=== PATIENT | male | born 1945 | race Caucasian/White ===

== ENCOUNTER → 2019-01-20 | Outpatient (CLI) | payer MEDICARE ==
--- NOTE | 2019-01-21 11:28 | US ---
EXAMINATION TYPE: US duplex aorta DATE OF EXAM: 01/20/2019 COMPARISON: NONE CLINICAL HISTORY: Z13.6 AAA. AAA Screening EXAM MEASUREMENTS: Abdominal Aorta: Proximal: 2.2 x 2.0 cm Mid: 2.0 x 1.8 cm Distal: 1.9 x 1.7 cm Bifurcation: SELINA: 1.1 x 1.2 cm BRISSA: 1.0 x 0.9 cm Atherosclerosis, no evidence of AAA IMPRESSION: No sonographic evidence of abdominal aortic aneurysm in the visualized portions of the ab dominal aorta.
== END | disposition home or self-care (01) ==
LOC: RADUSWWP 09:33
PROVIDERS: ATTEND Family Medicine
DX: Z13.6 Encounter for screening for cardiovascular disorders (principal)
CPT/HCPCS: 93979

== ENCOUNTER → 2020-10-13 | Outpatient (CLI) | payer MEDICARE ==
--- NOTE | 2020-10-13 12:18 | US ---
EXAMINATION TYPE: US venous doppler duplex LE RT DATE OF EXAM: 10/13/2020 12:01 PM COMPARISON: NONE CLINICAL HISTORY: R79 + d dimer R22.41 Swelling Right Lower. edema SIDE PERFORMED: Right TECHNIQUE: The lower extremity deep venous system is examined utilizing real time linear array sonog quirino with graded compression, doppler sonography and color-flow sonography. VESSELS IMAGED: Common Femoral Vein Deep Femoral Vein Greater Saphenous Vein * Femoral Vein Popliteal Vein Small Saphenous Vein * Proximal Calf Veins (* superficial vessels) Popliteal Leg: Negative for DVT Bakers cyst seen 5.0 x 1.9 x 3.7 cm IMPRESSION: No sonographic evidence for deep vein thrombosis of the right lower extremity. Popliteal fossa cyst i s present.
== END | disposition home or self-care (01) ==
LOC: RADUSWWP 11:27
PROVIDERS: ATTEND Family Medicine
DX: R22.41 Localized swelling, mass and lump, right lower limb (principal); R79.89 Other specified abnormal findings of blood chemistry

== ENCOUNTER → 2021-04-09 | Outpatient (CLI) | payer MEDICARE ==
[~2021-04-09] MED LIST: BAMLANIVIMAB (EUA) 700 MG, ETESEVIMAB (EUA) 1,400 MG in SODIUM CHLORIDE 0.9% 50 ML IVPB ONE; SODIUM CHLORIDE 0.9% 50 ML IVPB ONE; SODIUM CHLORIDE 0.9% 500 ML 500 ML in EMPTY BAG 1 BAG IV PRN
[2021-04-09 10:49] VITALS: RESP 16
[2021-04-09 10:50] VITALS: PULSE 78
[2021-04-09 11:05] VITALS: BP 127/79; TEMP 96.9
== END ==
LOC: PROCWHC3 09:50
PROVIDERS: ATTEND Physician Assistant
DX: U07.1 COVID-19 (principal); E66.9 Obesity, unspecified; E11.9 Type 2 diabetes mellitus without complications; F17.200 Nicotine dependence, unspecified, uncomplicated; Z68.42 Body mass index [BMI] 45.0-49.9, adult
CPT/HCPCS: 96360; J3490; M0245

== ENCOUNTER 2022-04-16 11:43 | Emergency (ER) | payer MEDICARE ==
[2022-04-16 12:21] VITALS: BP 120/66; PULSE 78; RESP 20; TEMP 97.4
--- NOTE | 2022-04-16 13:34 | ED ---
General Adult HPI - General Chief complaint: Extremity Problem,Nontraumatic Stated complaint: Rash on R. Foot, R/O Blood Clot Time Seen by Provider: 04/16/22 12:23 Source: patient, family, RN notes reviewed, old records reviewed Mode of arrival: ambulatory Limitations: language barrier - History of Present Illness Initial comments: This is a 76-year-old male who presents to the emergency department with a rash on his right leg there is multiple vesicles and erythema around the vesicles. Patient is very demented and does not state that there is any pain. Patient's leg is also swollen. Daughter states this is been ongoing since April 13. There is been no complaints of any fever but some difficulty breathing or pain patient here specifically for the swollen leg in the rash on the leg. - Related Data Home Medications Medication Instructions Recorded Confirmed Aspirin EC [Ecotrin Low Dose] 81 mg PO DAILY 04/16/22 04/16/22 Atorvastatin [Lipitor] 20 mg PO DAILY 04/16/22 04/16/22 Benazepril HCl 20 mg PO DAILY 04/16/22 04/16/22 Cyanocobalamin (Vitamin B-12) 1,000 mcg PO DAILY 04/16/22 04/16/22 [Vitamin B-12] Dapagliflozin Propanediol [Farxiga] 10 mg PO DAILY 04/16/22 04/16/22 Donepezil [Aricept] 5 mg PO DAILY 04/16/22 04/16/22 Furosemide [Lasix] 20 mg PO DAILY 04/16/22 04/16/22 Glimepiride [Amaryl] 1 mg PO BID 04/16/22 04/16/22 Latanoprost/Pf [Latanoprost 0.005% 1 drop BOTH EYES HS 04/16/22 04/16/22 Eye Drop] Memantine [Namenda] 10 mg PO BID 04/16/22 04/16/22 Timolol 0.25% Ophth Soln [Timoptic 1 drop BOTH EYES DAILY 04/16/22 04/16/22 0.25% Ophth Soln] metFORMIN HCL [Glucophage] 500 mg PO BID 04/16/22 04/16/22 Previous Rx's Medication Instructions Recorded valACYclovir HCL [Valacyclovir] 1,000 mg PO TID #30 tab 04/16/22 Allergies Allergy/AdvReac Type Severity Reaction Status Date / Time No Known Allergies Allergy Verified 04/16/22 14:09 Review of Systems ROS Statement: Those systems with pertinent positive or pertinent negative responses have been documented in the HPI. ROS Other: All systems not noted in ROS Statement are negative. Past Medical History Past Medical History: Dementia, Hyperlipidemia, Hypertension Additional Past Medical History / Comment(s): gout History of Any Multi-Drug Resistant Organisms: None Reported Past Surgical History: No Surgical Hx Reported Past Psychological History: No Psychological Hx Reported Smoking Status: Former smoker Past Alcohol Use History: None Reported Past Drug Use History: None Reported General Exam - General Exam Comments Initial Comments: GENERAL: Patient is well-developed and well-nourished. Patient is nontoxic and well- hydrated and is in no acute distress. ENT: Neck is soft and supple. No significant lymphadenopathy is noted. Oropharynx is clear. Moist mucous membranes. EYES: The sclera were anicteric and conjunctiva were pink and moist. Extraocular movements were intact and pupils were equal round and reactive to light. Eyelids were unremarkable. PULMONARY: Unlabored respirations. Good breath sounds bilaterally. CARDIOVASCULAR: There is a regular rate and rhythm without any murmurs gallops or rubs. ABDOMEN: Soft and nontender with normal bowel sounds. SKIN: There is vesicles in groups on the right leg on the anterior medial aspect there are no vesicles on the other leg or anywhere else on the body. NEUROLOGIC: Patient is alert and oriented 1. Cranial nerves II through XII are grossly intact. Motor intact. Normal speech, volume and content. Symmetrical smile. MUSCULOSKELETAL: Normal extremities with adequate strength and full range of motion. Right leg is swollen. LYMPHATICS: No significant lymphadenopathy is noted PSYCHIATRIC: Normal psychiatric evaluation. Limitations: language barrier Course Vital Signs 04/16/22 12:16 Temperature 97.4 F L Pulse Rate 78 Respiratory 20 Rate Blood Pressure 120/66 O2 Sat by Pulse 96 Oximetry Medical Decision Making - Medical Decision Making Was pt. sent in by a medical professional or institution? @ -No Did you speak to anyone other than the patient for history? @ -Daughter Did you review nursing and triage notes? @ -Agree with nursing notes Were old charts reviewed? @ -No old charts were reviewed Differential Diagnosis? @ -DVT, infection, zoster EKG interpreted by me (3pts min.)? @ -None X-rays interpreted by me (1pt min.)? @ -None CT interpreted by me (1pt min.)? @ -None U/S interpreted by me (1pt. min.)? @ -No DVT was detected there is a Weber cyst on the right toe. What testing was considered but not performed? (CT, X-rays, U/S, labs)? Why? @ -No What meds were considered but not given? Why? @ -No Did you discuss the management of the patient with other professionals? @ -No Did you reconcile home meds? @ -No Was smoking cessation discussed for >3mins.? @ -No Was critical care preformed (if so, how long)? @ -No Were there social determinants of health that impacted care today? How? (Homelessness, low income, unemployed, alcoholism, drug addiction, transportation, low edu. Level, literacy, decrease access to med. care, penitentiary, rehab)? @ -No Was there de-escalation of care discussed even if they declined? (Discuss DNR or withdrawal of care, Hospice)? @ -No What co-morbidities impacted this encounter? (DM, HTN, Smoking, COPD, CAD, Cancer, CVA, Hep., AIDS, mental health diagnosis, sleep apnea, morbid obesity)? @ -No Was patient admitted / discharged? @ -Discharged. Patient be sent home on valacyclovir patient has no signs of bacterial infection at this time. If there is any signs of redness fever or streaking erythema patient should return to emergency department immediately Undiagnosed new problem with uncertain prognosis? @ -No Drug Therapy requiring intensive monitoring for toxicity (Heparin, Nitro, Insulin, Cardizem)? @ -No Were any procedures done? @ -No Diagnosis/symptom? @ -Herpes zoster Acute, or Chronic, or Acute on Chronic? @ -Acute Uncomplicated (without systemic symptoms) or Complicated (systemic symptoms)? @ -Uncomplicated Side effects of treatment? @ -No Exacerbation, Progression, or Severe Exacerbation] @ -No Poses a threat to life or bodily function? @ -No Diagnosis/symptom? @ -Weber cyst Acute, or Chronic, or Acute on Chronic? @ -Chronic Uncomplicated (without systemic symptoms) or Complicated (systemic symptoms)? @ -Uncomplicated Side effects of treatment? @ -No Exacerbation, Progression, or Severe Exacerbation? @ -No Poses a threat to life or bodily function? @ -No Disposition Clinical Impression: Herpes zoster Disposition: HOME SELF-CARE Condition: Good Instructions (If sedation given, give patient instructions): Shingles (ED) Prescriptions: valACYclovir HCL [Valacyclovir] 1,000 mg PO TID #30 tab Is patient prescribed a controlled substance at d/c from ED?: No Referrals: Hira Cope MD [Primary Care Provider] - 1-2 days Time of Disposition: 15:07
--- NOTE | 2022-04-16 14:30 | US ---
EXAMINATION TYPE: US venous doppler duplex LE RT DATE OF EXAM: 04/16/2022 2:04 PM COMPARISON: 10/13/2020 CLINICAL HISTORY: 76-year-old male with swollen right leg. Limited history. SIDE PERFORMED: Right TECHNIQUE: The lower extremity deep venous system is examined utilizing real time linear array sonog quirino with graded compression, doppler sonography and color-flow sonography. FINDINGS: VESSELS IMAGED: Common Femoral Vein Deep Femoral Vein Greater Saphenous Vein * Femoral Vein Popliteal Vein Small Saphenous Vein * Proximal Calf Veins (* superficial vessels) Right Leg: No evidence of DVT in veins imaged. Anamika complex Weber's cyst within the right popliteal fossa measurin.1 x 4.8 x 1.6 cm. IMPRESSION: 1. No sonographic evidence for DVT within the right lower extremity imaged from the groin to the uppe r calf. 2. Moderate-sized Weber's cyst measuring 6.1 x 4.8 cm.
== END 2022-04-16 15:39 | disposition home or self-care (01) ==
LOC: EC 11:43
DX: B02.9 Zoster without complications (principal); I10 Essential (primary) hypertension; E78.5 Hyperlipidemia, unspecified; Z79.82 Long term (current) use of aspirin; Z79.84 Long term (current) use of oral hypoglycemic drugs; Z79.899 Other long term (current) drug therapy; Z87.891 Personal history of nicotine dependence
CPT/HCPCS: 99283

== ENCOUNTER 2024-01-04 13:47 | Inpatient (IN) | payer MEDICARE ==
[2024-01-04] MEDS: SODIUM CHLORIDE 0.9% 500 ML 500 ML IV ONE (14:53)
[2024-01-04] MEDS: SODIUM CHLORIDE 0.9% 1,000 ML IV ONE (14:54)
[2024-01-04] MEDS: KETOROLAC 15 MG/ML 1 ML VIAL IVP STA (14:55)
[2024-01-04] MEDS: ACETAMINOPHEN IV (For NPO) 1,000 MG in EMPTY BAG 1 BAG IVPB STA (15:02)
[2024-01-04] MEDS: SODIUM CHLORIDE 0.9% 1,000 ML IV STA (15:03)
--- NOTE | 2024-01-04 15:11 | ED ---
Altered Mental Status HPI - General Chief Complaint: Altered Mental Status Stated Complaint: Weakness, Fever Time Seen by Provider: 01/04/24 14:05 Source: family, EMS, RN notes reviewed Mode of arrival: EMS Limitations: altered mental status - History of Present Illness Initial Comments: This is an 78-year-old male who presents to the emergency department for weakness and altered mental status. Family states that over the last week he has been sleeping more than normal and is less active. This morning he was very difficult to arouse and they noted him to be febrile. Per EMS they had to sternal rub him to wake him up. They state that his oxygen saturation was also around 89-90%. He has been coughing a bit as well. Patient's daughter and his w benitez have had URI symptoms. He has a history of dementia, but is usually able to make some sense when he speaks and talk a little bit, however he is not making any sense when he is trying to speak currently. Additionally, he is usually able to get up walk around a little bit, but has not been able to get up on his own over the last day. MD Complaint: altered mental status, confusion - Related Data Home Medications Medication Instructions Recorded Confirmed Aspirin EC [Ecotrin Low Dose] 81 mg PO DAILY 04/16/22 01/04/24 Atorvastatin [Lipitor] 20 mg PO DAILY 04/16/22 01/04/24 Benazepril HCl 20 mg PO DAILY 04/16/22 01/04/24 Cyanocobalamin (Vitamin B-12) 1,000 mcg PO DAILY 04/16/22 01/04/24 [Vitamin B-12] Donepezil [Aricept] 5 mg PO DAILY 04/16/22 01/04/24 Furosemide [Lasix] 20 mg PO DAILY 04/16/22 01/04/24 Latanoprost/Pf [Latanoprost 0.005% 1 drop BOTH EYES HS 04/16/22 01/04/24 Eye Drop] Memantine [Namenda] 10 mg PO BID 04/16/22 01/04/24 metFORMIN HCL [Glucophage] 500 mg PO BID 04/16/22 01/04/24 Dapagliflozin Propanediol [Farxiga] 5 mg PO DAILY 01/04/24 01/04/24 Timolol 0.5% Ophth Soln [Timoptic 1 drop BOTH EYES DAILY 01/04/24 01/04/24 0.5% Ophth Soln] Allergies Allergy/AdvReac Type Severity Reaction Status Date / Time No Known Allergies Allergy Verified 01/04/24 15:55 Review of Systems ROS Statement: Those systems with pertinent positive or pertinent negative responses have been documented in the HPI. ROS Other: All systems not noted in ROS Statement are negative. Past Medical History Past Medical History: Cancer, Dementia, Diabetes Mellitus, Hyperlipidemia, Hypertension Additional Past Medical History / Comment(s): gout, prostate cancer History of Any Multi-Drug Resistant Organisms: None Reported Past Surgical History: No Surgical Hx Reported Past Psychological History: No Psychological Hx Reported Smoking Status: Former smoker Past Alcohol Use History: None Reported Past Drug Use History: None Reported General Exam Limitations: altered mental status General appearance: alert Head exam: Present: atraumatic, normocephalic, normal inspection Respiratory exam: Present: normal lung sounds bilaterally. Absent: respiratory distress, wheezes, rales, rhonchi, stridor Cardiovascular Exam: Present: regular rate, normal rhythm, normal heart sounds. Absent: systolic murmur, diastolic murmur, rubs, gallop, clicks GI/Abdominal exam: Present: soft, normal bowel sounds. Absent: distended Neurological exam: Present: alert Skin exam: Present: warm, dry, intact Course Vital Signs 01/04/24 01/04/24 01/04/24 13:50 15:03 16:19 Temperature 101.3 F H 99.5 F Pulse Rate 98 89 89 Respiratory 20 22 20 Rate Blood Pressure 105/73 112/65 98/61 O2 Sat by Pulse 91 L 97 96 Oximetry 01/04/24 17:51 Temperature Pulse Rate 77 Respiratory 18 Rate Blood Pressure 96/57 O2 Sat by Pulse 95 Oximetry Medical Decision Making - Medical Decision Making This is an 78 year old male who presents to the emergency department for weakness and altered mental status. Was pt. sent in by a medical professional or institution? @ -No Did you speak to anyone other than the patient for history? @ -His family provided all of the history Did you review nursing and triage notes? @ -Yes, and I agree, it is accurate with regards to the patient's symptoms. Were old charts reviewed? @ -No Differential Diagnosis? @ -Differential Altered Mental Status: Hypoglycemia, DKA, hypercapnia, ETOH, overdose, CO poisoning, trauma, myxedema coma, HTN encephalopathy, infection, encephalitis, psychosis, intercranial hemorrhage, hepatic encephalopathy, meningitis, CVA, this is not meant to be an all-inclusive list EKG interpreted by me (3pts min.)? @ -EKG interpreted by me demonstrating the following: Sinus rhythm. Ventricular rate 95 bpm, MS interval 148 ms, QRS duration 94 ms, QTc 389 ms. X-rays interpreted by me (1pt min.)? @ -Chest x-ray obtained. My interpretation identifies diffuse interstitial opacities. CT interpreted by me (1pt min.)? @ -Not obtained U/S interpreted by me (1pt. min.)? @ -Not obtained What testing was considered but not performed? (CT, X-rays, U/S, labs)? Why? @ -None What meds were considered but not given? Why? @ -None Did you discuss the management of the patient with other professionals? @ -Yes, Dr. Schwartz, who accepts the patient for admission Did you reconcile home meds? @ -Yes Was smoking cessation discussed for >3mins.? @ -No Was critical care preformed (if so, how long)? @ -No Were there social determinants of health that impacted care today? How? (Homelessness, low income, unemployed, alcoholism, drug addiction, transportation, low edu. Level, literacy, decrease access to med. care, prison, rehab)? @ -No Was there de-escalation of care discussed even if they declined? (Discuss DNR or withdrawal of care, Hospice)? @ -No What co-morbidities impacted this encounter? (DM, HTN, Smoking, COPD, CAD, Cancer, CVA, Hep., AIDS, mental health diagnosis, sleep apnea, morbid obesity)? @ -Dementia, DM, HLD, HTN Was patient admitted / discharged? @ -Admitted. Lab work relatively unremarkable. Patient positive for COVID-19. Chest x-ray reveals diffuse interstitial opacities concerning for CHF with pulmonary vascular congestion. BNP 766. Patient's family states that he does not have a history of CHF. He is on Lasix 20 mg daily. Urinalysis negative for signs of infection. Patient currently requiring supplemental oxygen at approximately 2 L. We attempted to decrease his oxygen and he dropped to 87% on room air. This likely would have continued to drop lower, however we turned the oxygen back up to prevent the patient from becoming distressed. He is unable to provide much of any history himself at this time. Pressures were also consistently soft in the high 90s systolically. Given patient's low oxygen saturation with level of increasing weakness, patient admitted to medicine for COVID hypoxia. He was started on Decadron daily due to supplemental oxygen requirement. Case discussed with ED attending Dr. Yo. Undiagnosed new problem with uncertain prognosis? @ -None Drug Therapy requiring intensive monitoring for toxicity (Heparin, Nitro, Insulin, Cardizem)? @ -None Were any procedures done? @ -None Diagnosis/symptom? @ -COVID hypoxia Acute, or Chronic, or Acute on Chronic? @ -Acute Uncomplicated (without systemic symptoms) or Complicated (systemic symptoms)? @ -Complicated Side effects of treatment? @ -None Exacerbation, Progression, or Severe Exacerbation] @ -Not applicable Poses a threat to life or bodily function? @ -Yes, can lead to respiratory arrest and - Lab Data Result diagrams: 01/04/24 14:38 01/04/24 14:38 Lab Results 01/04/24 01/04/24 01/04/24 Range/Units 14:38 14:38 14:38 WBC 6.9 (3.8-10.6) k/uL RBC 5.46 (4.30-5.90) m/uL Hgb 12.8 L (13.0-17.5) gm/dL Hct 40.0 (39.0-53.0) % MCV 73.3 L (80.0-100.0) fL MCH 23.5 L (25.0-35.0) pg MCHC 32.1 (31.0-37.0) g/dL RDW 15.5 (11.5-15.5) % Plt Count 123 L (150-450) k/uL MPV 11.0 Neutrophils % 72 % Lymphocytes % 15 % Monocytes % 10 % Eosinophils % 1 % Basophils % 0 % Neutrophils # 5.0 (1.3-7.7) k/uL Lymphocytes # 1.0 (1.0-4.8) k/uL Monocytes # 0.7 (0-1.0) k/uL Eosinophils # 0.1 (0-0.7) k/uL Basophils # 0.0 (0-0.2) k/uL Hypochromasia Slight Microcytosis Slight PT 11.3 (10.0-12.5) sec INR 1.0 (<1.2) APTT 20.9 L (22.0-30.0) sec Sodium 139 (137-145) mmol/L Potassium 4.3 (3.5-5.1) mmol/L Chloride 101 (98-107) mmol/L Carbon Dioxide 27 (22-30) mmol/L Anion Gap 11 mmol/L BUN 12 (9-20) mg/dL Creatinine 0.75 (0.66-1.25) mg/dL Est GFR (CKD-EPI)AfAm >90 (>60 ml/min/1.73 sqM) Est GFR (CKD-EPI)NonAf 87 (>60 ml/min/1.73 sqM) Glucose 131 H (74-99) mg/dL Plasma Lactic Acid Bernardino (0.7-2.0) mmol/L Calcium 9.2 (8.4-10.2) mg/dL Total Bilirubin 1.0 (0.2-1.3) mg/dL AST 19 (17-59) U/L ALT 15 (4-49) U/L Alkaline Phosphatase 62 (38-126) U/L Troponin I (0.000-0.034) ng/mL NT-Pro-B Natriuret Pep pg/mL Total Protein 6.9 (6.3-8.2) g/dL Albumin 4.1 (3.5-5.0) g/dL Urine Color Urine Appearance (Clear) Urine pH (5.0-8.0) Ur Specific [place] (1.001-1.035) Urine Protein (Negative) Urine Glucose (UA) (Negative) Urine Ketones (Negative) Urine Blood (Negative) Urine Nitrite (Negative) Urine Bilirubin (Negative) Urine Urobilinogen (<2.0) mg/dL Ur Leukocyte Esterase (Negative) Urine RBC (0-5) /hpf Urine WBC (0-5) /hpf Ur Squamous Epith Cells (0-4) /hpf Urine Mucus (None) /hpf Influenza Type A (PCR) (Not Detectd) Influenza Type B (PCR) (Not Detectd) RSV (PCR) (Not Detectd) SARS-CoV-2 (PCR) (Not Detectd) 01/04/24 01/04/24 01/04/24 Range/Units 14:38 14:38 14:38 WBC (3.8-10.6) k/uL RBC (4.30-5.90) m/uL Hgb (13.0-17.5) gm/dL Hct (39.0-53.0) % MCV (80.0-100.0) fL MCH (25.0-35.0) pg MCHC (31.0-37.0) g/dL RDW (11.5-15.5) % Plt Count (150-450) k/uL MPV Neutrophils % % Lymphocytes % % Monocytes % % Eosinophils % % Basophils % % Neutrophils # (1.3-7.7) k/uL Lymphocytes # (1.0-4.8) k/uL Monocytes # (0-1.0) k/uL Eosinophils # (0-0.7) k/uL Basophils # (0-0.2) k/uL Hypochromasia Microcytosis PT (10.0-12.5) sec INR (<1.2) APTT (22.0-30.0) sec Sodium (137-145) mmol/L Potassium (3.5-5.1) mmol/L Chloride (98-107) mmol/L Carbon Dioxide (22-30) mmol/L Anion Gap mmol/L BUN (9-20) mg/dL Creatinine (0.66-1.25) mg/dL Est GFR (CKD-EPI)AfAm (>60 ml/min/1.73 sqM) Est GFR (CKD-EPI)NonAf (>60 ml/min/1.73 sqM) Glucose (74-99) mg/dL Plasma Lactic Acid Bernardino 1.4 (0.7-2.0) mmol/L Calcium (8.4-10.2) mg/dL Total Bilirubin (0.2-1.3) mg/dL AST (17-59) U/L ALT (4-49) U/L Alkaline Phosphatase (38-126) U/L Troponin I (0.000-0.034) ng/mL NT-Pro-B Natriuret Pep pg/mL Total Protein (6.3-8.2) g/dL Albumin (3.5-5.0) g/dL Urine Color Yellow Urine Appearance Clear (Clear) Urine pH 6.0 (5.0-8.0) Ur Specific [place] 1.029 (1.001-1.035) Urine Protein Trace H (Negative) Urine Glucose (UA) 4+ H (Negative) Urine Ketones Trace H (Negative) Urine Blood Trace H (Negative) Urine Nitrite Negative (Negative) Urine Bilirubin Negative (Negative) Urine Urobilinogen <2.0 (<2.0) mg/dL Ur Leukocyte Esterase Negative (Negative) Urine RBC 6 H (0-5) /hpf Urine WBC 1 (0-5) /hpf Ur Squamous Epith Cells <1 (0-4) /hpf Urine Mucus Rare H (None) /hpf Influenza Type A (PCR) Not Detected (Not Detectd) Influenza Type B (PCR) Not Detected (Not Detectd) RSV (PCR) Not Detected (Not Detectd) SARS-CoV-2 (PCR) Detected A (Not Detectd) 01/04/24 01/04/24 Range/Units 14:38 14:38 WBC (3.8-10.6) k/uL RBC (4.30-5.90) m/uL Hgb (13.0-17.5) gm/dL Hct (39.0-53.0) % MCV (80.0-100.0) fL MCH (25.0-35.0) pg MCHC (31.0-37.0) g/dL RDW (11.5-15.5) % Plt Count (150-450) k/uL MPV Neutrophils % % Lymphocytes % % Monocytes % % Eosinophils % % Basophils % % Neutrophils # (1.3-7.7) k/uL Lymphocytes # (1.0-4.8) k/uL Monocytes # (0-1.0) k/uL Eosinophils # (0-0.7) k/uL Basophils # (0-0.2) k/uL Hypochromasia Microcytosis PT (10.0-12.5) sec INR (<1.2) APTT (22.0-30.0) sec Sodium (137-145) mmol/L Potassium (3.5-5.1) mmol/L Chloride (98-107) mmol/L Carbon Dioxide (22-30) mmol/L Anion Gap mmol/L BUN (9-20) mg/dL Creatinine (0.66-1.25) mg/dL Est GFR (CKD-EPI)AfAm (>60 ml/min/1.73 sqM) Est GFR (CKD-EPI)NonAf (>60 ml/min/1.73 sqM) Glucose (74-99) mg/dL Plasma Lactic Acid [place] (0.7-2.0) mmol/L Calcium (8.4-10.2) mg/dL Total Bilirubin (0.2-1.3) mg/dL AST (17-59) U/L ALT (4-49) U/L Alkaline Phosphatase (38-126) U/L Troponin I <0.012 (0.000-0.034) ng/mL NT-Pro-B Natriuret Pep 766 pg/mL Total Protein (6.3-8.2) g/dL Albumin (3.5-5.0) g/dL Urine Color Urine Appearance (Clear) Urine pH (5.0-8.0) Ur Specific [place] (1.001-1.035) Urine Protein (Negative) Urine Glucose (UA) (Negative) Urine Ketones (Negative) Urine Blood (Negative) Urine Nitrite (Negative) Urine Bilirubin (Negative) Urine Urobilinogen (<2.0) mg/dL Ur Leukocyte Esterase (Negative) Urine RBC (0-5) /hpf Urine WBC (0-5) /hpf Ur Squamous Epith Cells (0-4) /hpf Urine Mucus (None) /hpf Influenza Type A (PCR) (Not Detectd) Influenza Type B (PCR) (Not Detectd) RSV (PCR) (Not Detectd) SARS-CoV-2 (PCR) (Not Detectd) - Radiology Data Radiology results: report reviewed, image reviewed Disposition Clinical Impression: Acute hypoxemic respiratory failure due to COVID-19 Disposition: ADMITTED IP TO THIS HOSP
[2024-01-04 15:18] LABS: ALT 15 U/L (4-49); AST 19 U/L (17-59); African American GFR (CKD) >90 (>60 ml/min/1.73 sqM); Albumin 4.1 g/dL (3.5-5.0); Alkaline Phosphatase 62 U/L (38-126); Anion Gap 11 mmol/L; Blood Urea Nitrogen 12 mg/dL (9-20); Calcium 9.2 mg/dL (8.4-10.2); Carbon Dioxide 27 mmol/L (22-30); Chloride 101 mmol/L (98-107); Glucose 131 mg/dL (74-99); Non-African American GFR(CKD) 87 (>60 ml/min/1.73 sqM); Potassium 4.3 mmol/L (3.5-5.1); Sodium 139 mmol/L (137-145); Total Protein 6.9 g/dL (6.3-8.2)
[2024-01-04 15:19] LABS: Basophils % (A) 0 %; Eosinophils # (A) 0.1 k/uL (0-0.7); Eosinophils % (A) 1 %; HGB 12.8 gm/dL (13.0-17.5); Hypochromasia Slight; Lymphocytes % (A) 15 %; MCH 23.5 pg (25.0-35.0); MCHC 32.1 g/dL (31.0-37.0); MCV 73.3 fL (80.0-100.0); Microcytosis Slight; Monocytes # (A) 0.7 k/uL (0-1.0); Monocytes % (A) 10 %; Neutrophils % (A) 72 %; Platelet Count 123 k/uL (150-450); RBC 5.46 m/uL (4.30-5.90); RDW 15.5 % (11.5-15.5); WBC 6.9 k/uL (3.8-10.6)
--- NOTE | 2024-01-04 15:23 | XR ---
EXAMINATION TYPE: XR chest 2V DATE OF EXAM: 01/04/2024 COMPARISON: None HISTORY: 78-year-old male confusion, altered mental status TECHNIQUE: AP and lateral views FINDINGS: Heart mildly enlarged. Diffuse interstitial opacities. No [place] consolidation or pleural effusion. IMPRESSION: CHF with pulmonary vascular congestion. [facility] Josesito Zambrano, , 01/04/2024 3:21 PM
[2024-01-04 15:25] LABS: Partial Thromboplastin Time 20.9 sec (22.0-30.0); Prothrombin Time 11.3 sec (10.0-12.5)
[2024-01-04 17:19] LABS: Appearance,Urine Clear (Clear); Bilirubin,Urine Negative (Negative); Blood,Urine Trace (Negative); Color,Urine Yellow; Glucose,Urine (UA) 4+ (Negative); Ketones,Urine Trace (Negative); Leukocyte Esterase,Urine Negative (Negative); Mucus,Urine Rare /hpf; Nitrite,Urine Negative (Negative); Protein,Urine Trace (Negative); RBC,Urine 6 /hpf (0-5); Specific Gravity,Urine 1.029 (1.001-1.035); Squamous Epithelial Cell,Urine <1 /hpf (0-4); Urobilinogen,Urine <2.0 mg/dL (<2.0); WBC,Urine 1 /hpf (0-5)
[2024-01-04] MEDS ORDERED: ALBUTEROL HFA INHALER INHALATION PRN (17:37)
[2024-01-04] MEDS ORDERED: MORPHINE SULFATE 4 MG/ML SYRINGE IV PRN (17:40)
[2024-01-04] MEDS ORDERED: KETOROLAC 15 MG/ML 1 ML VIAL IVP PRN (17:40)
[2024-01-04] MEDS ORDERED: ONDANSETRON 4 MG/2 ML VIAL IVP PRN (17:40)
[2024-01-04] MEDS ORDERED: NALOXONE 0.4 MG/ML 1 ML VIAL IV PRN (17:40)
[2024-01-04] MEDS: ALBUTEROL HFA INHALER INHALATION STA (18:03)
[2024-01-04] MEDS: ALBUTEROL HFA INHALER INHALATION SCH (19:47)
[2024-01-04] MEDS: DEXAMETHASONE SOD PHOSPHATE 10 MG/ML 1 ML VIAL IV SCH (19:50)
[2024-01-04] MEDS: SODIUM CHLORIDE 0.9% 1,000 ML IV SCH (19:53)
[2024-01-04] MEDS: ACETAMINOPHEN IV (For NPO) 1,000 MG in EMPTY BAG 1 BAG IVPB PRN (20:41)
[2024-01-04] MEDS: MEMANTINE 10 MG TAB PO SCH (22:49)
[2024-01-04] MEDS: LATANOPROST 0.005% OPHTH DROPS 2.5 ML BTL BOTH EYES SCH (22:50)
[2024-01-05] MEDS ORDERED: DEXTROSE 50% SYRINGE 50 ML IVP PRN ×2 (00:55)
--- NOTE | 2024-01-05 00:55 | P.HPIM ---
History of Present Illness H&P Date: 01/04/24 Chief Complaint: AMS 78 year old male with DM , hypertension , CHF patient brought in by EMS , after family noticed rapid decline in mental status over past couple days, patient unable to provide any meaningfull history at this time due to AMS. family reported two sick family members with URI symptoms , patient himself has been progressively getting weak and confused over the past week. this morning he was difficult to arouse and febrile. EMS found him hypoxic into 89-90% , patient is not on home oxygen . family reports some coughing , increase sleep and less active. at baseline he has dementia but still makes some sense and talks a little bit review of systems unable to obtain due to AMS on exam Constitutional: No acute distress, sleeping in bed , does not follow commands, moves his upper extremities spontaneously and purposefully Eyes: Anicteric sclerae, moist conjunctiva, Pupils equal round reactive to light ENMT: NC/AT Oropharynx clear, no erythema, or exudates Neck: Supple, no masses, or JVD No carotid bruits No thyromegaly Lungs: good breath sounds bilaterally , no wheezing , positive for inspiratory rales at left lung base Clear to percussion Normal respiratory effort, no accessory muscle use Cardiovascular: Heart regular in rate and rhythm, No murmurs, gallops, or rubs No peripheral edema Abdominal: Soft Nontender, no guarding, rebound or rigidity Abdomen moving with respiration Normoactive bowel sounds Extremities: No digital cyanosis No clubbing Pedal pulses intact and symmetrical Radial pulses intact and symmetrical No calf tenderness Psychiatric: sleepy , open eyes to verbal stimulation , mumbles incomprehensible words Neuro moves his upper extremities spontaneously and purposefully Past Medical History Past Medical History: Cancer, Dementia, Diabetes Mellitus, Hyperlipidemia, Hypertension Additional Past Medical History / Comment(s): gout, prostate cancer History of Any Multi-Drug Resistant Organisms: None Reported Past Surgical History: No Surgical Hx Reported Past Psychological History: No Psychological Hx Reported Smoking Status: Former smoker Past Alcohol Use History: None Reported Past Drug Use History: None Reported Medications and Allergies Home Medications Medication Instructions Recorded Confirmed Type Aspirin EC [Ecotrin Low Dose] 81 mg PO DAILY 04/16/22 01/04/24 History Atorvastatin [Lipitor] 20 mg PO DAILY 04/16/22 01/04/24 History Benazepril HCl 20 mg PO DAILY 04/16/22 01/04/24 History Cyanocobalamin (Vitamin B-12) 1,000 mcg PO DAILY 04/16/22 01/04/24 History [Vitamin B-12] Donepezil [Aricept] 5 mg PO DAILY 04/16/22 01/04/24 History Furosemide [Lasix] 20 mg PO DAILY 04/16/22 01/04/24 History Latanoprost/Pf [Latanoprost 0.005% 1 drop BOTH EYES HS 04/16/22 01/04/24 History Eye Drop] Memantine [Namenda] 10 mg PO BID 04/16/22 01/04/24 History metFORMIN HCL [Glucophage] 500 mg PO BID 04/16/22 01/04/24 History Dapagliflozin Propanediol [Farxiga] 5 mg PO DAILY 01/04/24 01/04/24 History Timolol 0.5% Ophth Soln [Timoptic 1 drop BOTH EYES DAILY 01/04/24 01/04/24 History 0.5% Ophth Soln] Allergies Allergy/AdvReac Type Severity Reaction Status Date / Time No Known Allergies Allergy Verified 01/04/24 15:55 Physical Exam Vitals: Vital Signs Temp Pulse Resp BP Pulse Ox 01/04/24 19:54 99.0 F 01/04/24 17:51 77 18 96/57 95 01/04/24 16:19 99.5 F 89 20 98/61 96 01/04/24 15:03 89 22 112/65 97 01/04/24 13:50 101.3 F H 98 20 105/73 91 L Intake and Output 01/04/24 01/04/24 01/04/24 06:59 14:59 22:59 Output Total 400 Balance -400 Output: Urine 400 Straight 400 Other: Weight 117.934 kg Results CBC & Chem 7: 01/04/24 14:38 01/04/24 14:38 Labs: Abnormal Lab Results - Last 24 Hours (Table) 01/04/24 01/04/24 01/04/24 Range/Units 14:38 14:38 14:38 Hgb 12.8 L (13.0-17.5) gm/dL MCV 73.3 L (80.0-100.0) fL MCH 23.5 L (25.0-35.0) pg Plt Count 123 L (150-450) k/uL APTT 20.9 L (22.0-30.0) sec Glucose 131 H (74-99) mg/dL Urine Protein (Negative) Urine Glucose (UA) (Negative) Urine Ketones (Negative) Urine Blood (Negative) Urine RBC (0-5) /hpf Urine Mucus (None) /hpf SARS-CoV-2 (PCR) (Not Detectd) 01/04/24 01/04/24 Range/Units 14:38 14:38 Hgb (13.0-17.5) gm/dL MCV (80.0-100.0) fL MCH (25.0-35.0) pg Plt Count (150-450) k/uL APTT (22.0-30.0) sec Glucose (74-99) mg/dL Urine Protein Trace H (Negative) Urine Glucose (UA) 4+ H (Negative) Urine Ketones Trace H (Negative) Urine Blood Trace H (Negative) Urine RBC 6 H (0-5) /hpf Urine Mucus Rare H (None) /hpf SARS-CoV-2 (PCR) Detected A (Not Detectd) Assessment and Plan Assessment: 78 year old male with DM , hypertension , CHF , brought to the hospital by EMS due to increase confusion and sleepiness, found to be hypoxic , I discussed the case with ED doc and I accepted the admission for acute hypoxic respiratory failure secondary to covid infection with anticipated length of stay > 2 midnights acute hypoxic respiratory failure covid pneumonia airborn and contact precautions supportive care supplemental oxygen as needed decadron 6 mg IVP daily X 10 days covid positive CXR mild pulmonary vascular congestion tylenol 1000 mg IVP q 6 hr prn for fever IVF hydration with normal saline 75 cc per hour WBC 6.9 unremarkable , Hgb 12.8 unremarkable DM insulin sliding scale continue farxiga Dementia continue mematine and donepezil hypertension continue lisinopril renal function unremarkable BUN 12 Cr 0.75 full code DVT PPX lovenox 40 mg sc daily
[2024-01-05] MEDS ORDERED: metFORMIN 500 MG TAB PO SCH (07:30)
[2024-01-05] MEDS: INSULIN ASPART (NovoLOG) 100 UNIT/ML VIAL SQ SCH (07:40)
[2024-01-05 07:41] LABS: Glucose,Whole Blood 132 mg/dL (70-110)
[2024-01-05] MEDS: ATORVASTATIN 20 MG TAB PO SCH (07:41)
[2024-01-05] MEDS: DAPAGLIFLOZIN PROPANEDIOL 5 MG TABLET PO SCH (07:41)
[2024-01-05] MEDS: ASPIRIN 81 MG PO SCH (07:41)
[2024-01-05] MEDS: ENOXAPARIN 40 MG/0.4 ML SYRINGE SQ SCH (07:41)
[2024-01-05] MEDS: CYANOCOBALAMIN 500 MCG TAB PO SCH (07:42)
[2024-01-05] MEDS: DONEPEZIL 5 MG TAB PO SCH (07:42)
[2024-01-05] MEDS: TIMOLOL 0.5% OPHTH DROPS 5 ML BTL BOTH EYES SCH (07:43)
[2024-01-05] MEDS: lisinopriL 20 MG TAB PO SCH (07:45)
[2024-01-05] MEDS: PANTOPRAZOLE 40 MG/10 ML VIAL IV SCH (07:45)
[2024-01-05] MEDS ORDERED: FUROSEMIDE 20 MG TAB PO SCH (09:00)
[2024-01-05 12:17] LABS: Glucose,Whole Blood 135 mg/dL (70-110)
--- NOTE | 2024-01-05 16:01 | P.PN ---
Subjective Progress Note Date: 01/05/24 Hospital Course: 78-year-old male with a history of dementia, hypertension, dyslipidemia, type 2 diabetes presenting with acute encephalopathy as well as hypoxic respiratory failure. In the ED, patient was hypoxic on room air requiring 2 L nasal cannula, rest of the vitals showed temperature 101.3 otherwise unremarkable. Laboratory workup showed hemoglobin of 12.8, MCV 73.3, platelet 123, elevated D- dimer 1.57, BNP 766, troponin negative, procalcitonin 0.1, COVID positive. Patient admitted for COVID-pneumonia and hypoxic respiratory failure. On IV Decadron. Subjective: Patient seen and examined at bedside. No acute events overnight. Patient unable to speak the language but claims that he is feeling better. Pertinent positives and negatives as discussed above, a complete review of systems was performed and all other systems are negative. Vitals Signs Reviewed. General: Nontoxic, no distress, appears at stated age, morbidly obese Derm: Warm, dry Head: Atraumatic, normocephalic, symmetric Eyes: EOMI, no lid lag, anicteric sclera Mouth: No lip lesion, mucus membranes moist Cardiovascular: S1S2 reg, no murmur Lungs: Bilateral rhonchi, no accessory muscle use Abdominal: Soft, nontender to palpation, no guarding, no appreciable organomegaly Ext: No gross muscle atrophy, no edema, no contractures Neuro: CN II-XI grossly intact, no focal neuro deficits Psych: Alert, oriented, appropriate affect Data Reviewed Today: Pertinent Labs: Glucose range between 1 31-1 35, procalcitonin 0.1, D-dimer 1.57 Imaging: no new imaging Assessment and Plan: Acute hypoxic respiratory failure Acute COVID-pneumonia -Supportive care -Wean oxygen -IV Decadron changed to oral Decadron 6 mg daily complete total course of 10 days. -No indications for antibiotics -Tylenol as needed for fever -Continue normal saline at 75 cc an hour DM -Insulin sliding scale, ACHS, monitor for hypoglycemia -Continue farxiga 5 mg daily Dementia -Continue mematine 10 twice daily and donepezil 5 daily hypertension -Continue lisinopril 20 daily Dyslipidemia -Continue atorvastatin 20 daily DVT ppx: Lovenox Code status: Full code Anticipated discharge place: Home Anticipated discharge time: Likely tomorrow Objective - Vital Signs Vital signs: Vital Signs Temp 98.9 F 01/05/24 07:58 Pulse 75 01/05/24 15:00 Resp 18 01/05/24 15:00 BP 145/60 01/05/24 15:00 Pulse Ox 95 01/05/24 15:00 FiO2 Intake & Output 01/04/24 01/05/24 01/05/24 18:59 06:59 18:59 Output Total 400 Balance -400 Weight 117.934 kg Output: Urine 400 Straight 400 - Labs CBC & Chem 7: 01/04/24 14:38 01/04/24 14:38 Labs: Abnormal Lab Results - Last 24 Hours (Table) 01/04/24 01/04/24 01/05/24 Range/Units 14:38 14:38 07:14 APTT 20.9 L (22.0-30.0) sec D-Dimer 1.57 H (<0.60) mg/L FEU POC Glucose (mg/dL) (70-110) mg/dL Urine Protein Trace H (Negative) Urine Glucose (UA) 4+ H (Negative) Urine Ketones Trace H (Negative) Urine Blood Trace H (Negative) Urine RBC 6 H (0-5) /hpf Urine Mucus Rare H (None) /hpf 01/05/24 01/05/24 Range/Units 07:39 12:15 APTT (22.0-30.0) sec D-Dimer (<0.60) mg/L FEU POC Glucose (mg/dL) 132 H 135 H (70-110) mg/dL Urine Protein (Negative) Urine Glucose (UA) (Negative) Urine Ketones (Negative) Urine Blood (Negative) Urine RBC (0-5) /hpf Urine Mucus (None) /hpf
[2024-01-05 16:58] LABS: Glucose,Whole Blood 213 mg/dL (70-110)
[2024-01-05 20:15] LABS: Glucose,Whole Blood 217 mg/dL (70-110)
[2024-01-06 05:35] LABS: Glucose,Whole Blood 151 mg/dL (70-110)
[2024-01-06 08:26] VITALS: BP 118/66; PULSE 55; RESP 16; TEMP 97.5
[2024-01-06] MEDS: dexAMETHasone 2 MG TAB PO SCH (10:02)
[2024-01-06 11:31] LABS: Glucose,Whole Blood 125 mg/dL (70-110)
--- NOTE | 2024-01-06 11:38 | P.DS ---
Providers Date of admission: 01/05/24 08:47 Expected date of discharge: 01/06/24 Attending physician: Rolando Schwartz MD Primary care physician: Hira Cope [facility] Course: Discharge Diagnosis: Acute hypoxic respiratory failure Acute COVID-pneumonia DM Dementia hypertension Dyslipidemia Hospital Course: 78-year-old male with a history of dementia, hypertension, dyslipidemia, type 2 diabetes presenting with acute encephalopathy as well as hypoxic respiratory failure. In the ED, patient was hypoxic on room air requiring 2 L nasal cannula, rest of the vitals showed temperature 101.3 otherwise unremarkable. Laboratory workup showed hemoglobin of 12.8, MCV 73.3, platelet 123, elevated D- dimer 1.57, BNP 766, troponin negative, procalcitonin 0.1, COVID positive. Patient admitted for COVID-pneumonia and hypoxic respiratory failure. On IV Decadron now switched to oral. Mental status around baseline. Patient's functional status also around baseline. On room air at the time of discharge. Follow-up outpatient with PCP. Patient seen and examined at bedside. Vital signs reviewed and stable. General: Nontoxic, no distress, appears at stated age, morbidly obese Derm: Warm, dry Head: Atraumatic, normocephalic, symmetric Eyes: EOMI, no lid lag, anicteric sclera Mouth: No lip lesion, mucus membranes moist Cardiovascular: S1S2 reg, no murmur Lungs: Bilateral rhonchi, no accessory muscle use Abdominal: Soft, nontender to palpation, no guarding, no appreciable organomegaly Ext: No gross muscle atrophy, no edema, no contractures Neuro: CN II-XI grossly intact, no focal neuro deficits Psych: Alert, oriented x1, appropriate affect A total of 33 minutes of time were spent preparing this complex discharge summary. Patient was discharged on 01/06/2024 at 1118. Patient Condition at Discharge: Stable Plan - Discharge Summary New Discharge Prescriptions: New dexAMETHasone ORAL [Hexadrol] 6 mg PO DAILY #7 tab Continue Aspirin EC [Ecotrin Low Dose] 81 mg PO DAILY Atorvastatin [Lipitor] 20 mg PO DAILY Donepezil [Aricept] 5 mg PO DAILY Timolol 0.5% Ophth Soln [Timoptic 0.5% Ophth Soln] 1 drop BOTH EYES DAILY Benazepril HCl 20 mg PO DAILY Cyanocobalamin (Vitamin B-12) [Vitamin B-12] 1,000 mcg PO DAILY Furosemide [Lasix] 20 mg PO DAILY Latanoprost/Pf [Latanoprost 0.005% Eye Drop] 1 drop BOTH EYES HS Memantine [Namenda] 10 mg PO BID metFORMIN HCL [Glucophage] 500 mg PO BID Dapagliflozin Propanediol [Farxiga] 5 mg PO DAILY Discharge Medication List Aspirin EC [Ecotrin Low Dose] 81 mg PO DAILY 04/16/22 [History] Atorvastatin [Lipitor] 20 mg PO DAILY 04/16/22 [History] Benazepril HCl 20 mg PO DAILY 04/16/22 [History] Cyanocobalamin (Vitamin B-12) [Vitamin B-12] 1,000 mcg PO DAILY 04/16/22 [History] Donepezil [Aricept] 5 mg PO DAILY 04/16/22 [History] Furosemide [Lasix] 20 mg PO DAILY 04/16/22 [History] Latanoprost/Pf [Latanoprost 0.005% Eye Drop] 1 drop BOTH EYES HS 04/16/22 [History] Memantine [Namenda] 10 mg PO BID 04/16/22 [History] metFORMIN HCL [Glucophage] 500 mg PO BID 04/16/22 [History] Dapagliflozin Propanediol [Farxiga] 5 mg PO DAILY 01/04/24 [History] Timolol 0.5% Ophth Soln [Timoptic 0.5% Ophth Soln] 1 drop BOTH EYES DAILY 01/04/24 [History] dexAMETHasone ORAL [Hexadrol] 6 mg PO DAILY #7 tab 01/06/24 [Rx] Follow up Appointment(s)/Referral(s): Hira Cope MD [Primary Care Provider] - 1-2 days Patient Instructions/Handouts: COVID-19 (Coronavirus Disease 2019) (DC) Activity/Diet/Wound Care/Special Instructions: Please see your PCP. Discharge Disposition: HOME SELF-CARE
== END 2024-01-06 15:06 | disposition home or self-care (01) | DRG 177 ==
LOC: EC 13:47 → 4SSUR 17:54 → OBSVTOIN 01-05 08:47 → 4SSUR 01-05 20:57
PROVIDERS: ADMIT Student in an Organized Health Care Education/Training Program; ATTEND Student in an Organized Health Care Education/Training Program
DX: U07.1 COVID-19 (principal); J12.82 Pneumonia due to coronavirus disease 2019; J96.01 Acute respiratory failure with hypoxia; G93.40 Encephalopathy, unspecified; F03.90 Unspecified dementia, unspecified severity, without behavioral disturbance, psychotic disturbance, mood disturbance, and anxiety; I11.0 Hypertensive heart disease with heart failure; I50.9 Heart failure, unspecified; E11.9 Type 2 diabetes mellitus without complications; E78.5 Hyperlipidemia, unspecified; Z79.84 Long term (current) use of oral hypoglycemic drugs; Z79.82 Long term (current) use of aspirin; Z79.899 Other long term (current) drug therapy; Z85.46 Personal history of malignant neoplasm of prostate; Z87.891 Personal history of nicotine dependence
CPT/HCPCS: 36415; 71046; 80053; 81001; 83036; 83605; 83880; 84145; 84484; 85025; 85379; 85610; 85730; 87040; 87636; 93005; 94640; 96361; 96372; 96374; 96375; 99285